=== PATIENT | male | born 1985 | race Two or more races ===

== ENCOUNTER 2020-11-28 10:02 | Emergency (ER) | payer OTHER ==
[~2020-11-28] VITALS: Ht 177.8 cm; Wt 63.5 kg
[2020-11-28 13:05] LABS: Basophils # (auto) 0.1 10 ^3/uL (0-0.2); Basophils % (auto) 0.7 % (0.0-2.0); Eosinophils # (auto) 0 10 ^3/uL (0-0.8); Hemoglobin 14.1 g/dL (13.5-17.5); Lymphocytes # (auto) 2.1 10 ^3/uL (0.4-5.4); Lymphocytes % (auto) 10.7 % (10.0-50.0); Mean Corpuscular Hemoglobin 31.4 pg (28.0-32.0); Mean Corpuscular Hgb Conc. 35.2 g/dL (32.0-36.0); Mean Corpuscular Volume 89.2 fL (80.0-100.0); Monocytes # (auto) 1.8 10 ^3/uL (0-1.3); Monocytes % (auto) 9.4 % (0.0-12.0); Neutrophils # (auto) 15.4 10 ^3/uL (1.6-8.6); Neutrophils % (auto) 79.2 % (37.0-80.0); Red Blood Cells 4.48 10^6/uL (4.5-5.90); Red Cell Distribution Width 13.5 % (11.8-14.3); White Blood Cell 19.4 10^3/uL (4.4-10.8)
[2020-11-28 13:30] LABS: Albumin 3.9 g/dL (3.4-5.0); Calcium 8.9 mg/dL (8.5-10.1); Potassium 3.8 mmol/L (3.5-5.1)
[2020-11-28 13:32] LABS: Salicylate < 1.7 mg/dL (2.8-20.0)
[2020-11-28 13:36] LABS: Acetaminophen < 2.0 ug/mL (10-30)
[2020-11-28 13:38] LABS: BUN/Creatinine Ratio 23.5; Bilirubin, Total 2.6 mg/dL (0.2-1.0); Total Protein 6.8 g/dL (6.4-8.2)
[2020-11-28 14:32] LABS: Urine Bacteria NONE SEEN /hpf (None Seen); Urine Blood Negative /uL (Negative); Urine Mucus FEW (None Seen); Urine Sperm PRESENT /hpf (None Seen); Urine WBC 2 /hpf (0 - 3)
[2020-11-28 14:56] LABS: Amphetamine Screen, Urine POSITIVE (NEGATIVE); Barbiturate Scree,Urine NEGATIVE (NEGATIVE); Benzodiazephine Screen, Urine NEGATIVE (NEGATIVE); Cannabinoid Screen, Urine POSITIVE (NEGATIVE); Cocaine Screen, Urine NEGATIVE (NEGATIVE); Opiate Scree,Urine NEGATIVE (NEGATIVE); Phencyclidine Screen, Urine NEGATIVE (NEGATIVE)
[2020-11-28] MEDS ORDERED: LORazepam 2MG/ML-1ML VIAL ONE (15:51)
[2020-11-28] MEDS ORDERED: LORazepam 2MG/ML-1ML VIAL IV ONE (16:00)
[2020-11-28] MEDS ORDERED: OLANZapine 5 MG TAB PO ONE (17:15)
[2020-11-28] MEDS ORDERED: diphenhdrAMINE HCL 50 MG/1 ML VL IM ONE (17:15)
[2020-11-30 01:20] VITALS: BP 122/78
== END 2020-11-30 01:45 ==
LOC: ER 10:02 → EDBD 10:02 → ER 11-30 01:45
DX: S30.1XXA Contusion of abdominal wall, initial encounter (principal); S30.0XXA Contusion of lower back and pelvis, initial encounter; S40.812A Abrasion of left upper arm, initial encounter; S40.811A Abrasion of right upper arm, initial encounter; F41.9 Anxiety disorder, unspecified; F19.950 Other psychoactive substance use, unspecified with psychoactive substance-induced psychotic disorder with delusions; F15.10 Other stimulant abuse, uncomplicated; F12.10 Cannabis abuse, uncomplicated; F20.0 Paranoid schizophrenia; Z20.822 Contact with and (suspected) exposure to COVID-19; X58.XXXA Exposure to other specified factors, initial encounter; Y93.89 Activity, other specified; Y92.89 Other specified places as the place of occurrence of the external cause; Y99.8 Other external cause status
CPT/HCPCS: 36415; 80053; 80307; 80329; 81001; 85025; 87426; 96372; 96374; 99285; J1200; J2060